=== PATIENT | female | born 1965 | race Caucasian/White ===

== ENCOUNTER 2022-04-13 08:15 | Outpatient (CLI) | payer OTHER, SELFPAY ==
--- NOTE | 2022-04-13 08:45 | CRLHL7_ITS ---
For Patients: As a result of the Century Cures Act, medical imaging exams and procedure reports are released immediately into your electronic medical record. You may view this report before your referring provider. If you have questions, please contact your health care provider. BILATERAL DIGITAL DIAGNOSTIC MAMMOGRAM WITH COMPUTER-AIDED DETECTION AND TOMOSYNTHESIS RIGHT AXILLA ULTRASOUND CLINICAL HISTORY: 56-year-old female. No personal history of breast cancer or biopsies. RIGHT axillary lump and RIGHT axillary fullness for 1 week. TECHNIQUE: CC and MLO views were obtained. This digital study was evaluated with the assistance of computer-aided detection. Digital breast tomosynthesis was utilized. A RIGHT axilla ultrasound was also performed. Directed RIGHT breast ultrasound with this radiologist present. COMPARISON: None. This is the patient???s baseline mammogram. BREAST COMPOSITION: There are scattered areas of fibroglandular density. FINDINGS: MAMMOGRAM: There are no suspicious microcalcifications, regions of architecture distortion, or dominant masses in either breast. Specifically, there is no abnormality on the RIGHT. There appears to be a large amount of axillary fat as well as a prominent RIGHT axillary lymph node. Small LEFT axillary lymph node. Ultrasound of the RIGHT axilla will be performed for further evaluation. Please see ultrasound report from the same date. IMPRESSION: 1. Nothing for malignancy in either breast. 2. Probable prominent lymph node RIGHT axilla for which ultrasound will be performed. FINDINGS: ULTRASOUND: The RIGHT axilla was carefully scanned demonstrating a single enlarged RIGHT axillary lymph node measuring 4.0 x 1.5 x 3.3 cm. This maintains a normal reniform shape and has a fatty hilus. Morphologically, it appears normal, simply enlarged. This may be a reactive lymph node. IMPRESSION: Palpable enlarged RIGHT axillary lymph node, otherwise morphologically normal. This is likely reactive. No further workup or follow up is recommended. ASSESSMENT: BI-RADS Category 2: Benign A lay language report of this examination will be provided to the patient. Dictated by: Quinn Phelps MD @04/13/2022 10:00:50 AM PT/Dictated by: Quinn Phelps MD @ 04/13/2022 9:59:00 AM (Electronically Signed)
--- NOTE | 2022-04-13 09:15 | CRLHL7_ITS ---
For Patients: As a result of the Cures Act, medical imaging exams and procedure reports are released immediately into your electronic medical record. You may view this report before your referring provider. If you have questions, please contact your health care provider. PLEASE SEE BILATERAL DIAGNOSTIC MAMMOGRAM OF SAME DAY. CRL:adrien PT/Dictated by: Quinn Phelps MD @ 04/13/2022 10:00:00 AM (Electronically Signed)
== END 2022-04-13 08:16 | disposition home or self-care (01) ==
LOC: MAMMO 08:16
PROVIDERS: PCP Family Medicine; Visit Provider Family Medicine
DX: N63.10 Unspecified lump in the right breast, unspecified quadrant (principal); M79.89 Other specified soft tissue disorders; R59.0 Localized enlarged lymph nodes
CPT/HCPCS: 76642; 77066; G0279

== ENCOUNTER 2022-08-01 07:30 | Outpatient (CLI) | payer OTHER, SELFPAY | END 2022-08-01 07:31 | disposition home or self-care (01) | LOC: INJ CL 07:31 | PROVIDERS: PCP Family Medicine; Visit Provider Family Medicine | DX: M54.16 Radiculopathy, lumbar region (principal); M51.36 Other intervertebral disc degeneration, lumbar region | CPT/HCPCS: 62323; J0702; Q9966 ==

== ENCOUNTER 2023-12-28 11:33 | Outpatient (CLI) | payer OTHER, SELFPAY ==
--- NOTE | 2023-12-28 13:28 | W.ANESCHARGE ---
Anesthesia Charges Start Date/Time Anesthesia Start Date: 12/28/23 Anesthesia Start Time: 13:08 Stop Date/Time Anesthesia Stop Date: 12/28/23 Anesthesia Stop Time: 13:26
== END 2023-12-28 11:34 | disposition home or self-care (01) ==
PROVIDERS: PCP Family Medicine; Visit Provider Internal Medicine Gastroenterology
DX: Z12.11 Encounter for screening for malignant neoplasm of colon (principal); K63.5 Polyp of colon
CPT/HCPCS: 00811; 45380; 88305; J2704